=== PATIENT | male | born 1975 | race Two or more races ===

== ENCOUNTER 2024-05-24 07:41 | Emergency (ER) | payer OTHER ==
[~2024-05-24] VITALS: Ht 167.6 cm; Wt 68.2 kg
[2024-05-24 07:58] VITALS: BP 113/71; PULSE 64; RESP 16; TEMP 98.6; O2SAT 99
[2024-05-24] MEDS: IBUPROFEN 400 MG TABLET PO ONE (08:40)
[2024-05-24] MEDS: ACETAMINOPHEN 325 MG TABLET PO ONE (08:40)
[2024-05-24] MEDS: CIPROFLOXACIN HCL 250 MG TABLET PO ONE (08:40)
== END 2024-05-24 09:18 | disposition home or self-care (01) ==
LOC: EMS 07:45
DX: H60.91 Unspecified otitis externa, right ear (principal)
CPT/HCPCS: 99284; Z7502; Z7610